=== PATIENT | female | born 1965 | race Caucasian/White ===

== ENCOUNTER → 2016-07-05 | Outpatient (CLI) | payer MEDICARE, MEDICAID ==
[~2016-07-05] MED LIST: ACTOS 15MG TABL15 MG PO; ALBUTEROL2 PUFFS/17 IN; AMITRIPTYLINE100 M1 PO; AMOXICILLIN 50500 MG PO; ASPIRIN 81MG TA81 MG PO; BACLOFEN 10MG T10 MG PO; CALCIUM 500 + D1 TA1 OR; CELEXA40 MG PO; CYCLOBENZAPRINE10 MG PO; FLEXERIL10 MG PO; GABAPENTIN 600600 MG PO; GABAPENTIN300 MG PO; GEMFIBROZIL600 M1 PO; GLIPIZIDE 5MG TA5 MG PO; GLUCOTROL PO; HYDROCODONE BIT1 T45 PO; HYDROCODONE W/1 TAB PO; HYDROCODONE-APA1 TA1 PO; INSULIN HUMA100 U/ML IJ; LANTUS INS100 UNITS/ SC; LEVAQUIN250 MG PO; LEVOTHYROXIN0.075 M1; LEVOTHYROXIN0.075 M1 PO; LEVOTHYROXIN0.112 M1 PO; LEVOTHYROXIN0.112 MG PO; LISINOPRIL 5MG T5 MG PO; LISINOPRIL20 MG PO; LORATADINE 10MG10 M1 OR; LORTAB 5/500 501 TAB PO; MEDROL 4MG. DOSE4 MG PO; MELOXICAM15 MG PO; METFORMIN1000 MG PO; METFORMIN500 MG PO; MOTRIN 600MG.600 MG PO; NADOLOL 20 MG T20 MG PO; NAPROSYN 500MG500 MG PO; NORCO 325 MG-101 TAB PO; NORCO 325 MG-51 TAB PO; NOVOLOG MI100 UNITS/ SC; PERCOCET 5/3251 EACH PO; PRAVASTATIN 20M20 MG PO; PRAVASTATIN 40M40 MG PO; ROBAXIN-750750 MG PO; TESSALON PERLE100 MG PO; VICODIN 5/500 T1 TAB PO; [UNRECOGNIZED DRUG - OTHER]; [UNRECOGNIZED DRUG - OTHER] SC; [UNRECOGNIZED DRUG - REMARK] PO
--- NOTE | 2016-07-06 06:35 | RADIOLOGY REPORT PS360 ---
MRI-L-SPINE W/O, MRI-3D RENDERING/MYELOGRAM HISTORY: Worsening low back pain with tingling and numbness in feet mainly on the right WORSENING BACK PAIN ORDERING PHYSICIAN: MARCELL ROGERS CRNA PATIENT AGE: 50 years COMPARISON: 12/31/2014 TECHNIQUE: Standard multiplanar multiecho sequences are performed without contrast. 3-D MIP and myelographic images are also rendered and reviewed FINDINGS: There is normal alignment. The spinal cord ends at the L2 level. Transitional segment is present as described before and is labeled as S1 with partial lumbarization of the S1 segment. T11-T12: Degenerative disc disease with some endplate irregularity. T12-L1: Mild degenerative disc disease with anterior osteophyte formation. L1-L2: Mild degenerative disc disease and mild facet hypertrophic change. L2-L3: Facet and ligamentum flavum hypertrophy with bilateral lateral recess narrowing and transverse narrowing of the canal is clearly not significantly changed. L3-L4: Facet and ligamentum flavum hypertrophy. L4-L5: Facet and ligamentum flavum hypertrophic. L5-S1: Severe degenerative disc disease with type II endplate changes within moderate bulging disc and small broad-based central disc protrusion very slightly eccentric toward the left abutting the anteromedial aspect of the S1 nerve roots as previously described. The small left paracentral disc protrusion appears right slightly more prominent when compared to the previous exam. IMPRESSION: 1. Moderate spondylosis of the lumbar spine as detailed at each level above. Please above for detailed description at each level There is mild bilateral foraminal narrowing change 2. Severe degenerative disc disease at L5-S1 with type II endplate changes within moderate bulging disc and small broad-based central disc protrusion very slightly eccentric toward the left abutting the anteromedial aspect of the S1 nerve roots as previously described. The small left paracentral disc protrusion appears right slightly more prominent when compared to the previous exam
== END ==
LOC: RAD 07-02 13:45
DX: M54.5 Low back pain (principal)